=== PATIENT | female | born 1995 | race Caucasian/White ===

== ENCOUNTER 2018-10-15 08:12 | Emergency (ER) | payer OTHER ==
[2018-10-15 08:19] VITALS: BP 117/54
[2018-10-15] MEDS ORDERED: IBUPROFEN 800 MG TABLET PO STA (08:40)
--- NOTE | 2018-10-15 08:42 | ED Physician Documentation ---
History of Present Illness - Stated complaint Stated Complaint: SOA/LIGHTHEADED - Chief complaint Chief Complaint: Resp - History obtained from History obtained from: Patient - History of Present Illness Timing: Yesterday Pain level max: 6 Pain level now: 3 - Additonal information Additional information: 23-year-old female presents to the emergency department stating that when she takes a deep breath since yesterday she noticed right-sided sharp chest pain. Does not bother her if she is not breathing deeply. No recent illnesses. No recent travel. No recent surgeries. She does not smoke. No history of blood clots. She is on oral contraceptives. Worse with taking a deep breath and better with taking a shallow breath. Has not taken anything for pain. Review of Systems Constitutional: denies: Fever, Chills Nose: denies: Rhinorrhea / runny nose, Congestion Throat: denies: Sore throat Cardiac: denies: Palpitations Respiratory: denies: Cough, Hemoptysis, Wheezing GI: denies: Nausea, Vomiting : denies: Now EGA Skin: denies: Rash Musculoskeletal: denies: Neck pain, Back pain Neurologic: denies: Headache PD PAST MEDICAL HISTORY - Past Medical History Past Medical History: Yes Psych: Depression - Past Surgical History Past Surgical History: No - Present Medications Home Medications: Ambulatory Orders Medication Instructions Recorded Confirmed Desogestrel-Ethinyl Estradiol 1 each PO 10/15/18 10/15/18 [[place] 28 Day Tablet] Ibuprofen [Motrin] 800 mg PO Q8H PRN #30 tablet 10/15/18 Prazosin [Minipress] 1 mg PO QPM 10/15/18 10/15/18 Sertraline [Zoloft] 25 mg PO DAILY 10/15/18 10/15/18 - Allergies Allergies/Adverse Reactions: Allergies Allergy/AdvReac Type Severity Reaction Status Date / Time No Known Drug Allergies Allergy Verified 10/15/18 08:19 - Living Situation Living Arrangement: reports: At home - Social History Does the pt smoke?: No Smoking Status: Never smoker Does the pt drink ETOH?: Yes Does the pt have substance abuse?: No PD ED PE NORMAL - Vitals Vital signs reviewed: Yes - General General: Alert and oriented X 3, No acute distress, Well developed/nourished - HEENT HEENT: Moist mucous membranes - Neck Neck: Supple, no meningeal sign - Cardiac Cardiac: RRR, Strong equal pulses - Respiratory Respiratory: No respiratory distress, Clear bilaterally - Abdomen Abdomen: Soft, Non tender, Non distended, Other (No right upper quadrant tenderness) - Back Back: No CVA TTP, No spinal TTP - Derm Derm: Warm and dry, No rash - Extremities Extremities: No edema, No calf tenderness / cord - Neuro Neuro: Alert and oriented X 3 - Psych Psych: Normal mood, Normal affect - Free text exam Free text exam: Tender to palpation over the right anterior chest wall. Reproduces her pain, costochondral junction of approximately rib 10. Results - Vitals Vitals: Vital Signs - 24 hr 10/15/18 08:15 Temperature 36.4 C L Heart Rate 70 Respiratory 20 Rate Blood Pressure 117/54 L O2 Saturation 97 - Rads (name of study) Chest x-ray Radiology: Prelim report reviewed, EMP read contemporaneously, See rad report (No acute disease) PD MEDICAL DECISION MAKING - ED course Complexity details: reviewed results, re-evaluated patient, considered differential, d/w patient ED course: 23-year-old female with right-sided pleuritic chest pain that is reproducible by palpation of the costochondral junction. No risk factors for PE other than oral contraceptives. No clinical evidence of PE. She is well-appearing, nontoxic. No hypoxia. No respiratory distress. No tachycardia. Will place on NSAIDs for home and follow-up with her doctor. Patient counseled regarding signs and symptoms for which I believe and urgent re-evaluation would be ne cessary. Patient with good understanding of and agreement to plan and is comfortable going home at this time This document was made in part using voice recognition software. While efforts are made to proofread this document, sound alike and grammatical errors may occur. Departure - Departure Disposition: 01 Home, Self Care Clinical Impression: Costochondritis, acute Condition: Good Instructions: ED Chest Pain Costochondritis Follow-Up: Isaías Vick ARNP [Primary Care Provider] - Within 1 week Prescriptions: Ibuprofen [Motrin] 800 mg PO Q8H PRN #30 tablet PRN Reason: PAIN &/OR FEVER Comments: Your x-ray is normal today. This should improve over the next 2-3 days with anti-inflammatory medications. Return if you worsen or have increasing difficulty breathing. Discharge Date/Time: 10/15/18 09:23
--- NOTE | 2018-10-15 09:00 | XRAY Report ---
Reason: R side pleuritic CP Procedure Date: 10/15/2018 Accession Number: [id number] / [id number] Procedure: XR - Chest 2 View X-Ray CPT Code: 85408 FULL RESULT: EXAM: CHEST RADIOGRAPHY EXAM DATE: 10/15/2018 08:54 AM. CLINICAL HISTORY: R side pleuritic CP. COMPARISON: None. TECHNIQUE: 2 views. FINDINGS: Lungs/Pleura: No focal opacities evident. No pleural effusion. No pneumothorax. Normal volumes. Mediastinum: Heart and mediastinal contours are unremarkable. Other: None. IMPRESSION: Normal 2-view chest radiography. [facility]
== END 2018-10-15 09:23 | disposition home or self-care (01) ==
LOC: ED 08:12
DX: M94.0 Chondrocostal junction syndrome [Tietze] (principal)
CPT/HCPCS: 71046; 99283; A9270